=== PATIENT | male | born 1965 | race Caucasian/White ===

== ENCOUNTER 2018-04-20 22:10 | Emergency (ER) | payer OTHER ==
[~2018-04-20] VITALS: Ht 177.8 cm; Wt 89.1 kg
[2018-04-21] MEDS ORDERED: PERCOCET 5/31 TABLET PO (02:05)
[2018-04-21] MEDS ORDERED: KEFLEX500 MG PO (02:05)
[2018-04-21 03:29] VITALS: BP 133/70
== END 2018-04-21 03:35 | disposition home or self-care (01) ==
LOC: TRA 22:10 → EME 22:10 → TRA 04-21 03:35
PROC: 0HQ1XZZ Repair Face Skin, External Approach (ICD-10-PCS; principal; 2018-04-20)
DX: S01.81XA Laceration without foreign body of other part of head, initial encounter (principal); S50.811A Abrasion of right forearm, initial encounter; W39.XXXA Discharge of firework, initial encounter
CPT/HCPCS: 70150; 70450; 73080; 99281; 99284